=== PATIENT | male | born 1990 | race Two or more races ===

== ENCOUNTER 2019-01-31 23:57 | Emergency (ER) | payer OTHER ==
[~2019-01-31] VITALS: Ht 160 cm; Wt 77.1 kg
[~2019-01-31 23:57] MED LIST: CEPH-37 PO
[2019-02-01 02:10] VITALS: BP 134/88
== END 2019-02-01 02:20 ==
LOC: ER 02-01 00:09 → EEVIPCON 02-01 00:09 → ER 02-01 02:20
DX: Z13.39 Encounter for screening examination for other mental health and behavioral disorders (principal)

== ENCOUNTER 2019-02-19 17:06 | Inpatient (IN) | payer OTHER ==
[~2019-02-19] VITALS: Ht 162.6 cm; Wt 63.9 kg
[2019-02-19 17:58] VITALS: BP 118/70
[2019-02-19 18:27] LABS: Mean Corpuscular Volume 78.8 fL (80.0-100.0); Monocytes # (auto) 0.5 uL; White Blood Cell 5.3 10^3/uL (4.4-10.8)
[2019-02-19 18:29] LABS: Basophils # (auto) 0.1 uL; Basophils % (auto) 1.2 % (0.0-2.0); Eosinophils # (auto) 0.4 uL; Eosinophils % (auto) 8.5 % (0.0-7.0); Hematocrit 44.2 % (41.0-53.0); Hemoglobin 14.7 g/dL (13.5-17.5); Lymphocytes # (auto) 0.9 uL; Lymphocytes % (auto) 17.8 % (10.0-50.0); Mean Corpuscular Hemoglobin 26.2 pg (28.0-32.0); Mean Corpuscular Hgb Conc. 33.3 g/dL (32.0-36.0); Monocytes % (auto) 9.2 % (0.0-12.0); Neutrophils # (auto) 3.4 uL; Neutrophils % (auto) 63.3 % (37.0-80.0); Nucleated Red Blood Cells % 0.2 %; Platelet Count (auto) 199 10^3/uL (140-450); Red Blood Cells 5.62 10^6/uL (4.5-5.90); Red Cell Distribution Width 15.2 % (11.8-14.3)
[2019-02-19 18:34] LABS: INR 1.27 (0.9-1.15); Partial Thromboplastin Time 31.7 sec (23.78-33.04); Prothrombin Time 13.4 sec (9.27-12.13)
[2019-02-19] MEDS ORDERED: MORPHINE SULF INJ 2 MG/ML SYRINGE 1ML IV PRN ×2 (19:45)
[2019-02-19] MEDS ORDERED: NITROGLYCERIN 0.4 MG SL TAB SL PRN (19:45)
--- NOTE | 2019-02-19 20:00 | NUR ---
Opening Shift Note Assumed care of patient, awake and alert, oriented x 4. On room air with even and unlabored respirations. No S/S of distress or SOB. Patient denies pain at this time. Noted intact asymptomatic scar to left upper thigh. Bed low locked position with side rails up x 2 and call light within reach. Instructed on POC and to call for assist PRN, will continue to monitor for changes Q1hr and PRN.
[2019-02-19 22:00] VITALS: BP 112/62
[2019-02-20 04:52] VITALS: BP 116/63
[2019-02-20] MEDS ORDERED: HYDR-4683 PO (05:51)
[2019-02-20 06:33] LABS: Chloride 109 mmol/L (98-107); Potassium 4.9 mmol/L (3.5-5.1); Sodium 134 mmol/L (136-145)
[2019-02-20 06:36] LABS: Anion Gap 5 (5-15); Blood Urea Nitrogen 14 mg/dL (7-18); Calcium 8.6 mg/dL (8.5-10.1); Carbon Dioxide 20 mmol/L (21-32); Glucose 70 mg/dL (74-106)
[2019-02-20 06:39] LABS: BUN/Creatinine Ratio 16.7; GFR African American 138 mL/min; GFR Non-African American 114 mL/min
--- NOTE | 2019-02-20 07:04 | NUR ---
Closing Note patient resting in bed with even and unlabored respirations. No s/s of distress. Bed low locked position with side rails up x 2 and call light within reach. Endorsed care to day shift RN
[2019-02-20 09:00] VITALS: BP 104/65
[2019-02-20] MEDS: HYDROcodone-ACET 5/325MG TAB PO PRN ×2 (09:27→11:51)
[2019-02-20] MEDS: PANTOPRAZOLE 40 MG TAB PO SCH (09:28)
[2019-02-20] MEDS: ENOXAPARIN SOD 40 MG/0.4 ML SYRINGE SC SCH (09:28)
[2019-02-20] MEDS: ALLOPURINOL 300 MG TAB PO SCH (09:28)
[2019-02-20 13:00] VITALS: BP 113/65
[2019-02-20] MEDS: MULTIPLE VITAMIN 10 ML, MAGNESIUM SULF SDV 50% 8 MEQ, THIAMINE INJ 100 MG in D5W/SOD CH... IV SCH (13:08)
[2019-02-20] MEDS ORDERED: ONDANSETRON HCL 4 MG/2 ML VIAL IV SCH (13:30)
[2019-02-20] MEDS ORDERED: diphenhdrAMINE HCL 50 MG/1 ML VL IV SCH (13:30)
[2019-02-20] MEDS: ONDANSETRON HCL 16 MG in SODIUM CHL 0.9% 50 ML IV SCH (13:41)
[2019-02-20] MEDS: diphenhdrAMINE HCL 25 MG CAP PO PRN (13:41)
[2019-02-20] MEDS: SODIUM CHL 0.9% IV SCH (14:38)
[2019-02-20] MEDS: ETOPOSIDE IV SCH (14:38)
[2019-02-20 16:46] VITALS: BP 104/64
--- NOTE | 2019-02-20 19:45 | NUR ---
Opening Shift Note Assumed care of patient, awake and alert, oriented x 4. On room air with even and unlabored respirations. No S/S of distress or SOB. Patient denies pain at this time. Bed low locked position with side rails up x 2 and call light within reach. Instructed on POC and to call for assist PRN, will continue to monitor for changes Q1hr and PRN.
[2019-02-20 22:00] VITALS: BP 122/66
[2019-02-21 06:31] LABS: Basophils # (auto) 0 uL; Basophils % (auto) 0.8 % (0.0-2.0); Eosinophils # (auto) 0.5 uL; Hemoglobin 15.1 g/dL (13.5-17.5); Mean Corpuscular Volume 79.2 fL (80.0-100.0); Monocytes # (auto) 0.5 uL; Neutrophils # (auto) 3.2 uL
[2019-02-21 06:35] LABS: Eosinophils % (auto) 9.5 % (0.0-7.0); Hematocrit 44.9 % (41.0-53.0); Lymphocytes # (auto) 0.7 uL; Mean Corpuscular Hemoglobin 26.6 pg (28.0-32.0); Mean Corpuscular Hgb Conc. 33.6 g/dL (32.0-36.0); Monocytes % (auto) 10.2 % (0.0-12.0); Neutrophils % (auto) 64.5 % (37.0-80.0); Nucleated Red Blood Cells % 0.1 %; Platelet Count (auto) 206 10^3/uL (140-450); Red Blood Cells 5.67 10^6/uL (4.5-5.90); Red Cell Distribution Width 15.9 % (11.8-14.3); White Blood Cell 4.9 10^3/uL (4.4-10.8)
[2019-02-21 06:41] LABS: BUN/Creatinine Ratio 15.8; Calcium 8.6 mg/dL (8.5-10.1); Potassium 4.1 mmol/L (3.5-5.1)
--- NOTE | 2019-02-21 07:15 | NUR ---
Received phone call from Dr. Mendoza new orders for NPO now, stat PTPTT, and obtain consent for insertion of port a cath. Read back and verified. Will carry out orders. Informed patient and day shift RN Gin.
[2019-02-21 08:00] VITALS: BP 117/75
[2019-02-21 08:37] VITALS: BP 117/75
--- NOTE | 2019-02-21 08:45 | NUR ---
PATIENT STATES HE HAS BEEN NPO SINCE MIDNIGHT. PATIENT AWARE OF PENDING PROCEDURE.
--- NOTE | 2019-02-21 08:55 | NUR ---
PER PRE-OP: BRING PATIENT DOWN AT 0930 PATIENT PROCEDURE PENDING. PRE OP NURSE AWARE CONSENTS ARE UNSIGNED, CHECKLIST PLACED IN THE CHART. WILL CONTINUE CARE.
--- NOTE | 2019-02-21 09:10 | NUR ---
CALLED CHEMOTHERAPY NURSE ELEUTERIO AT DR. BOYER OFFICE SPOKE WITH GIOVANNI MCCLELLAN. STATED SHE WILL BE IN TO ADMINISTER CHEMOTHERAPY TODAY. INFORMED ELEUTERIO PATIENT IS HAVING A PORT-A-CATH PUT IN TODAY. WILL CONTINUE CARE.
[2019-02-21 09:16] LABS: INR 1.2 (0.9-1.15); Partial Thromboplastin Time 30.8 sec (23.78-33.04); Prothrombin Time 12.7 sec (9.27-12.13)
--- NOTE | 2019-02-21 09:40 | NUR ---
PATIENT TAKEN TO OR. GUARDS AT BEDSIDE. NO S/S OF DISTRESS. TELE BOX REMOVED PER ORDERS.
[2019-02-21] MEDS ORDERED: ceFAZolin 1GM/50ML 50 ML IV ONE (09:49)
[2019-02-21] MEDS ORDERED: LIDOCAINE 1% HCL (LOCAL ANESTH.) INJ 20ML MDV ONE (09:56)
[2019-02-21] MEDS ORDERED: HEPARIN SODIUM (PORCINE) 5000 UNITS/ML 1ML VIAL ONE (09:57)
[2019-02-21] MEDS ORDERED: BUPIVACAINE W/ EPINEPH 0.25% INJ 50ML MDV ONE (09:57)
[2019-02-21] MEDS ORDERED: HEPARIN 1,000 UNITS/ml 1ML VIAL ONE (09:57)
[2019-02-21] MEDS ORDERED: BUPIVACAINE 0.25% INJ 50ML VIAL ONE (09:58)
[2019-02-21] MEDS: ALLOPURINOL 300 MG TAB PO SCH (10:00)
[2019-02-21] MEDS: ENOXAPARIN SOD 40 MG/0.4 ML SYRINGE SC SCH (10:00)
[2019-02-21] MEDS: PANTOPRAZOLE 40 MG TAB PO SCH (10:00)
[2019-02-21] MEDS ORDERED: ceFAZolin 1GM VL ONE (10:13)
[2019-02-21] MEDS ORDERED: LIDOCAINE 1% (LOCAL ANESTH.) PF 5ml SDV ONE (10:31)
[2019-02-21] MEDS ORDERED: MIDAZOLAM HCL 1MG/1ML-2 ML VIAL ONE ×2 (10:35→10:45)
[2019-02-21] MEDS ORDERED: METOCLOPRAMIDE HCL 5MG/ml INJ 2ml VIAL ONE (10:39)
[2019-02-21] MEDS ORDERED: diphenhdrAMINE HCL 50 MG/1 ML VL ONE (10:39)
[2019-02-21] MEDS ORDERED: GLYCOPYRROLATE 0.2 MG/ML 1ML VIAL ONE ×2 (10:39→10:42)
[2019-02-21] MEDS ORDERED: PROPOFOL 10 MG/ML 20 ML IV ONE (11:02)
[2019-02-21] MEDS ORDERED: HYDROmorphone HCL 2 MG/ML VL IV PRN ×2 (11:15→11:30)
[2019-02-21] MEDS ORDERED: ONDANSETRON HCL 4 MG/2 ML VIAL IV ONE (11:30)
[2019-02-21] MEDS ORDERED: NALOXONE HCL 0.4 MG/ML VIAL IV PRN (11:30)
[2019-02-21] MEDS: MULTIPLE VITAMIN 10 ML, MAGNESIUM SULF SDV 50% 8 MEQ, THIAMINE INJ 100 MG in D5W/SOD CH... IV SCH (12:00)
--- NOTE | 2019-02-21 12:10 | NUR ---
PATIENT BACK TO UNIT. NO S/S OF DISTRESS. WILL CONTINUE CARE.
--- NOTE | 2019-02-21 12:15 | NUR ---
ASSESSMENT PATIENT RETURNED TO FLOOR WITH ACCESS TO PORT-A-CATH. WILL CONTINUE TO MONITOR.
[2019-02-21] MEDS: ONDANSETRON HCL 16 MG in SODIUM CHL 0.9% 50 ML IV SCH (13:19)
[2019-02-21] MEDS: diphenhdrAMINE HCL 25 MG CAP PO PRN (13:20)
--- NOTE | 2019-02-21 13:24 | NUR ---
ICE UPDATED ON PATIENT STATUS PASSWORD VERIFIED. ALL QUESTIONS AND CONCERNS ADDRESSED.
[2019-02-21] MEDS ORDERED: IFOSFAMIDE IV ONE (14:00)
[2019-02-21] MEDS ORDERED: MESNA IV ONE (14:00)
[2019-02-21] MEDS ORDERED: D5W 5% IV ONE ×2 (14:00)
[2019-02-21] MEDS ORDERED: CARBOPLATIN IV ONE (14:00)
[2019-02-21] MEDS: SODIUM CHL 0.9% IV SCH (15:47)
[2019-02-21] MEDS: ETOPOSIDE IV SCH (15:47)
--- NOTE | 2019-02-21 15:47 | NUR ---
CHEMOTHERAPY STARTED BY CHEMOTHERAPY NURSE. WILL CONTINUE CARE.
[2019-02-21] MEDS: ACETAMINOPHEN 500 MG TAB PO PRN (16:54)
[2019-02-21 17:00] VITALS: BP 111/68
--- NOTE | 2019-02-21 18:20 | NUR ---
Second bag of Chemotherapy started by chemo nurse Kaity. Will continue care.
--- NOTE | 2019-02-21 18:58 | NUR ---
Next chemotherapy drugs started by chemo nurseKaity. Will continue care.
--- NOTE | 2019-02-21 19:19 | NUR ---
CLOSING NOTE ENDORSED CARE TO LABORER PIE BAKERY RN. PATIENT IN BED LOW LOCK POSITION, CALL LIGHT IN REACH. NO S/S OF DISTRESS. CHEMOTHERAPY RUNNING, RN AWARE.
--- NOTE | 2019-02-21 19:50 | NUR ---
Opening Shift Note Assumed care of patient, awake and alert, oriented x 4. On room air with even and unlabored respirations. No S/S of distress or SOB. Patient denies pain at this time. IV to right AC intact and patent. Port-a-cath to left upper chest intact with chemotherapy medications infusing per orders. Bilateral radial and pedal pulses 3+, even and regular. Patient independently turns in bed and ambulates. Patient reports nausea, will follow up with anti-nausea per orders. Bed low locked position with side rails up x 2 and call light within reach. Guards at bedside. Instructed on POC and to call for assist PRN, will continue to monitor for changes Q1hr and PRN.
[2019-02-21] MEDS: ONDANSETRON HCL 4 MG/2 ML VIAL IV PRN (20:05)
[2019-02-21 22:00] VITALS: BP 106/66
[2019-02-22 05:00] VITALS: BP 120/73
--- NOTE | 2019-02-22 07:03 | NUR ---
Closing Note patient sleeping in bed with even and unlabored respirations. No s/s of distress. Port-a-cath intact infusing chemotherapy medications. Bed low locked position with side rails up x 2 and call light within reach. Guards at bedside. Endorsed care to day shift RN.
--- NOTE | 2019-02-22 07:30 | NUR ---
OPENING NOTE PATIENT IN BED LOW LOCK POSITION, CALL LIGHT IN REACH. IV PATENT, CHEMOTHERAPY INFUSING. NO S/S OF DISTRESS. WILL CONTINUE CARE.
[2019-02-22] MEDS: HYDROcodone-ACET 5/325MG TAB PO PRN ×2 (07:44→19:40)
[2019-02-22] MEDS: ONDANSETRON HCL 4 MG/2 ML VIAL IV PRN ×3 (07:45→17:55)
[2019-02-22 08:00] VITALS: BP 117/75
[2019-02-22] MEDS: ALLOPURINOL 300 MG TAB PO SCH (09:06)
[2019-02-22] MEDS: PANTOPRAZOLE 40 MG TAB PO SCH (09:06)
[2019-02-22] MEDS: ENOXAPARIN SOD 40 MG/0.4 ML SYRINGE SC SCH (09:06)
[2019-02-22] MEDS ORDERED: LACTULOSE 20Gm/30ML SOLN PO PRN (10:45)
[2019-02-22] MEDS ORDERED: HYDROmorphone HCL 2 MG/ML VL IV PRN (10:45)
[2019-02-22 10:52] LABS: Hepatitis B Surface Antibody Negative
[2019-02-22 11:14] LABS: Hepatitis A Total Antibody Positive
[2019-02-22 11:44] LABS: Hepatitis B Core Total AB Negative
[2019-02-22 11:45] LABS: Hepatitis B Surface Antigen Negative (Negative); Hepatitis C Antibody Negative (Negative)
[2019-02-22] MEDS: MULTIPLE VITAMIN 10 ML, MAGNESIUM SULF SDV 50% 8 MEQ, THIAMINE INJ 100 MG in D5W/SOD CH... IV SCH (12:07)
--- NOTE | 2019-02-22 13:29 | NUR ---
[facility] ICE UPDATED ON PATIENT STATUS PASSWORD VERIFIED. ALL QUESTIONS AND CONCERNS ADDRESSED.
[2019-02-22] MEDS: ONDANSETRON HCL 16 MG in SODIUM CHL 0.9% 50 ML IV SCH (13:30)
[2019-02-22] MEDS: SODIUM CHL 0.9% IV SCH (14:00)
[2019-02-22] MEDS: ETOPOSIDE IV SCH (14:00)
--- NOTE | 2019-02-22 15:01 | NUR ---
SPOKE WITH CHEMOTHERAPY NURSE ELEUTERIO STATED NO CHEMOTHERAPY WILL BE ADMINISTERED TODAY AFTER THE 24 HOUR INFUSION IS FINISHED TONIGHT. PER ELEUTERIO, GAVE ORDERS TO FINISH CHEMOTHERAPY ON MONDAY. CHARGE NURSE AWARE. STATED PORT-A-CATH NEEDS TO BE FLUSHED WITH 5,000 UNITS OF HEPARIN AFTER INFUSION OF CHEMOTHERAPY IS FINISHED. WILL CONTINUE CARE.
--- NOTE | 2019-02-22 19:30 | NUR ---
CLOSING NOTE ENDORSED CARE TO ZIPPER TRIMMER RN. CHEMOTHERAPY RUNNING, RN AWARE. BED IN LOW LOCK POSITION, CALL LIGHT IN REACH. NO S/S OF DISTRESS.
--- NOTE | 2019-02-22 20:45 | NUR ---
CHRISTINA HOSPITALIST, PATIENT COMPLAINT OF NAUSEA. ZOFRAN NOT DUE YET. KEPT HEAD OF BED ELEVATED MORE THAN 30 DEGREES. AWAITING CALLBACK. CONTINUE PATIENT CARE.
[2019-02-22] MEDS ORDERED: PROMETHAZINE HCL 25 MG/ML 1ML IV ONE (21:00)
[2019-02-22] MEDS: DOCUSATE SOD 100 MG CAP PO SCH (21:29)
--- NOTE | 2019-02-22 21:53 | NUR ---
HOSPITALIST SCOTT GASCA/PIN TICKET MACHINE OPERATOR CALLED BACK MADE AWARE OF PATIENT'S CURRENT CONDITION, ORDERED TO GIVE ONE TIME DOSE OF PHENERGAN 12.5 MG IV. CONTINUE PATIENT CARE.
[2019-02-22 22:00] VITALS: BP 112/62
--- NOTE | 2019-02-23 00:30 | NUR ---
DENIES NAUSEA AT THIS TIME.
[2019-02-23 05:18] VITALS: BP 117/71
[2019-02-23 08:00] VITALS: BP 102/67
[2019-02-23 08:54] VITALS: BP 114/58
--- NOTE | 2019-02-23 09:00 | NUR ---
Pt alert and oriented. Pt denies nausea at this time. [place] given for c/o pain in left groin area, with good effectiveness. No other c/o pain or discomfort. Security guards at bedside.
[2019-02-23] MEDS: HYDROcodone-ACET 5/325MG TAB PO PRN ×2 (09:31→16:29)
[2019-02-23] MEDS: ENOXAPARIN SOD 40 MG/0.4 ML SYRINGE SC SCH (10:05)
[2019-02-23] MEDS: ALLOPURINOL 300 MG TAB PO SCH (10:05)
[2019-02-23] MEDS: DOCUSATE SOD 100 MG CAP PO SCH ×2 (10:05→22:24)
[2019-02-23] MEDS: PANTOPRAZOLE 40 MG TAB PO SCH (10:05)
[2019-02-23 13:00] VITALS: BP 119/63
--- NOTE | 2019-02-23 14:00 | NUR ---
Pt c/o having difficulty voiding. Abd soft, no bladder distention apparent. No other c/o pain or discomfort.
--- NOTE | 2019-02-23 14:42 | NUR ---
Nutrition Assessment Notes Please see attached link for complete assessment Est. Needs ABShiva [id number] kcal (23-25 kcal/kgBW), 73-80 gms pro (1.0-1.1 gms/kgBW). Will continue to monitor pertinent labs and reassess nutrient need prn Addendum: 02/23/19 at [address] Amended: Links added.
--- NOTE | 2019-02-23 15:00 | NUR ---
pt voided 200cc clear yellow urine. No hematuria noted. Pt instructed, through interpretation by senior information security consultant, to use urinal so that output can be closely monitored.
[2019-02-23] MEDS: MULTIPLE VITAMIN 10 ML, MAGNESIUM SULF SDV 50% 8 MEQ, THIAMINE INJ 100 MG in D5W/SOD CH... IV SCH (16:30)
--- NOTE | 2019-02-23 16:30 | NUR ---
[place] given for c/o left groin pain. No other c/o pain or discomfort.
[2019-02-23 17:00] VITALS: BP 112/79
--- NOTE | 2019-02-23 18:00 | NUR ---
Pt voided 400cc clear yellow urine. No hematuria apparent. Pt denies pain or discomfort with voiding.
--- NOTE | 2019-02-23 19:20 | NUR ---
RECEIVED PATIENT LYING IN BED, AWAKE, ALERT, ORIENTED X4. NO S/S OF RESPIRATORY DISTRESS, DENIES SOB AND CHEST PAIN. SKIN IS INTACT. ORIENTED ON PLAN OF CARE. BED IS LOCKED AND IN LOWEST LEVEL, SIDE RAILS UP X2, CALL LIGHT WITHIN REACH. WILL CONTINUE TO MONITOR
[2019-02-23 22:00] VITALS: BP 104/52
--- NOTE | 2019-02-23 22:00 | NUR ---
PATIENT HAD A TOTAL OF 1,600 ML OF URINE OUTPUT, CLEAR AND LIGHT YELLOW IN COLOR. DENIES DISCOMFORT WITH VOIDING
[2019-02-23] MEDS: D5W/SOD CHL 0.45% 1,000 ML IV SCH (22:24)
[2019-02-24] MEDS: HYDROcodone-ACET 5/325MG TAB PO PRN ×2 (00:38→10:16)
[2019-02-24] MEDS: D5W/SOD CHL 0.45% 1,000 ML IV SCH ×3 (03:15→23:15)
[2019-02-24 04:55] VITALS: BP 99/50
--- NOTE | 2019-02-24 05:05 | NUR ---
ANOTHER 1,750 ML ADDED TO URINE OUTPUT, CLEAR AND LIGHT YELLOW IN COLOR. DENIES DISCOMFORT WITH VOIDING
[2019-02-24 05:46] LABS: Basophils # (auto) 0 uL; Eosinophils # (auto) 0.3 uL; Hematocrit 45.9 % (41.0-53.0); Lymphocytes # (auto) 0.4 uL; Mean Corpuscular Hemoglobin 26.8 pg (28.0-32.0); Monocytes # (auto) 0.2 uL; Neutrophils # (auto) 3.4 uL; Nucleated Red Blood Cells % 0.2 %; Platelet Count (auto) 163 10^3/uL (140-450); White Blood Cell 4.3 10^3/uL (4.4-10.8)
[2019-02-24 05:48] LABS: Basophils % (auto) 0.5 % (0.0-2.0); Eosinophils % (auto) 6.9 % (0.0-7.0); Hemoglobin 15.5 g/dL (13.5-17.5); Lymphocytes % (auto) 8.3 % (10.0-50.0); Mean Corpuscular Hgb Conc. 33.7 g/dL (32.0-36.0); Mean Corpuscular Volume 79.4 fL (80.0-100.0); Monocytes % (auto) 4.4 % (0.0-12.0); Neutrophils % (auto) 79.9 % (37.0-80.0); Red Blood Cells 5.78 10^6/uL (4.5-5.90); Red Cell Distribution Width 15.7 % (11.8-14.3)
[2019-02-24 05:58] LABS: Chloride 102 mmol/L (98-107); Sodium 134 mmol/L (136-145)
[2019-02-24 06:03] LABS: Anion Gap 7 (5-15); Blood Urea Nitrogen 16 mg/dL (7-18); Calcium 8.7 mg/dL (8.5-10.1); Carbon Dioxide 25 mmol/L (21-32); Glucose 92 mg/dL (74-106)
[2019-02-24 06:06] LABS: GFR African American 113 mL/min; GFR Non-African American 93 mL/min
--- NOTE | 2019-02-24 07:22 | NUR ---
CARE ENDORSED TO AM SHIFT RN
[2019-02-24 08:00] VITALS: BP 102/67
[2019-02-24 09:16] VITALS: BP 111/71
[2019-02-24] MEDS: ALLOPURINOL 300 MG TAB PO SCH (10:12)
[2019-02-24] MEDS: PANTOPRAZOLE 40 MG TAB PO SCH (10:12)
[2019-02-24] MEDS: DOCUSATE SOD 100 MG CAP PO SCH ×2 (10:13→21:33)
[2019-02-24] MEDS: ENOXAPARIN SOD 40 MG/0.4 ML SYRINGE SC SCH (10:13)
[2019-02-24] MEDS: MULTIPLE VITAMIN 10 ML, MAGNESIUM SULF SDV 50% 8 MEQ, THIAMINE INJ 100 MG in D5W/SOD CH... IV SCH (12:25)
[2019-02-24 13:00] VITALS: BP 106/69
[2019-02-24 17:28] VITALS: BP 106/63
--- NOTE | 2019-02-24 18:00 | NUR ---
Pt alert, and oriented, showing no change from initial assessment. Pt voiding large amts clear yellow urine with no apparent hematuria. Pt denies pain or discomfort with voiding. V.S.S., resp even, unlabored. [place], given times one, during this shift, for c/o left groin pain, with good effectiveness. No other c/o pain or discomfort. Security guards remain at bedside.
[2019-02-24 21:30] VITALS: BP 117/69
[2019-02-25 04:47] VITALS: BP 117/67
[2019-02-25 06:50] LABS: Basophils # (auto) 0 uL; Eosinophils # (auto) 0.3 uL
[2019-02-25 06:53] LABS: Basophils % (auto) 1.4 % (0.0-2.0); Eosinophils % (auto) 9.4 % (0.0-7.0); Hematocrit 43.7 % (41.0-53.0); Hemoglobin 15.1 g/dL (13.5-17.5); Lymphocytes # (auto) 0.5 uL; Lymphocytes % (auto) 14.9 % (10.0-50.0); Mean Corpuscular Hemoglobin 26.7 pg (28.0-32.0); Mean Corpuscular Hgb Conc. 34.5 g/dL (32.0-36.0); Mean Corpuscular Volume 77.2 fL (80.0-100.0); Monocytes # (auto) 0.2 uL; Neutrophils # (auto) 2.1 uL; Neutrophils % (auto) 69.3 % (37.0-80.0); Nucleated Red Blood Cells % 0.8 %; Platelet Count (auto) 169 10^3/uL (140-450); Red Blood Cells 5.66 10^6/uL (4.5-5.90); Red Cell Distribution Width 15.7 % (11.8-14.3); White Blood Cell 3.1 10^3/uL (4.4-10.8)
[2019-02-25 06:59] LABS: Potassium 3.2 mmol/L (3.5-5.1)
[2019-02-25 07:02] LABS: Albumin 3.8 g/dL (3.4-5.0); Calcium 8.6 mg/dL (8.5-10.1)
[2019-02-25 07:08] LABS: Bilirubin, Total 0.4 mg/dL (0.2-1.0); Total Protein 7.9 g/dL (6.4-8.2)
--- NOTE | 2019-02-25 07:26 | NUR ---
CARE ENDORSED TO AM SHIFT RN
--- NOTE | 2019-02-25 08:40 | NUR ---
SPOKE WITH CHEMOTHERAPY NURSEMARY NEW ORDERS GIVEN PER DR. KRISHNAMURTHY. SEE ORDERS.
--- NOTE | 2019-02-25 08:49 | NUR ---
SPOKE WITH PHARMACY ABOUT CHEMOTHERAPY. WILL CONTINUE CARE.
[2019-02-25] MEDS ORDERED: SODIUM CHL 0.9% IV SCH (09:00)
[2019-02-25] MEDS ORDERED: diphenhdrAMINE HCL 25 MG CAP PO PRN (09:00)
[2019-02-25] MEDS ORDERED: ETOPOSIDE IV SCH (09:00)
[2019-02-25] MEDS ORDERED: ONDANSETRON HCL 16 MG in SODIUM CHL 0.9% 50 ML IV SCH (09:00)
[2019-02-25] MEDS: PANTOPRAZOLE 40 MG TAB PO SCH (09:06)
[2019-02-25] MEDS: ENOXAPARIN SOD 40 MG/0.4 ML SYRINGE SC SCH (09:06)
[2019-02-25] MEDS: ALLOPURINOL 300 MG TAB PO SCH (09:06)
[2019-02-25] MEDS: DOCUSATE SOD 100 MG CAP PO SCH ×2 (09:06→21:31)
[2019-02-25 09:11] VITALS: BP 121/70
[2019-02-25] MEDS: D5W/SOD CHL 0.45% 1,000 ML IV SCH ×3 (10:52→21:30)
--- NOTE | 2019-02-25 11:15 | NUR ---
CHEMOTHERAPY STARTED BY CHEMO NURSE ELEUTERIO. WILL CONTINUE CARE.
[2019-02-25 12:48] VITALS: BP 103/60
--- NOTE | 2019-02-25 13:40 | NUR ---
CALLED PHARMACY TO OBTAIN SCHEDULE MEDICATION. STATED IT WOULD BE SENT AND MIXED. WILL CONTINUE TO MONITOR.
[2019-02-25] MEDS: MULTIPLE VITAMIN 10 ML, MAGNESIUM SULF SDV 50% 8 MEQ, THIAMINE INJ 100 MG in D5W/SOD CH... IV SCH (14:24)
--- NOTE | 2019-02-25 16:20 | NUR ---
REPORT GIVEN TO [facility] PASSWORD VERIFIED, SPOKE WITH JOBY. ALL QUESTIONS AND CONCERNS ADDRESSED.
[2019-02-25 16:49] VITALS: BP 109/83
[2019-02-25] MEDS: ACETAMINOPHEN 500 MG TAB PO PRN (17:57)
--- NOTE | 2019-02-25 18:38 | NUR ---
CALLED MD BOYER EXCHANGE TO VERIFY IF PATIENT IS RECEIVING CHEMOTHERAPY TOMORROW PER CHARGE NURSE REQUEST TO CALL MD TO VERIFY ORDERED CHEMOTHERAPY FOR TOMORROW. SPOKE WITH GABRIELA, PAGE SENT TO . AWAITING CALL BACK.
--- NOTE | 2019-02-25 19:08 | NUR ---
CLOSING NOTE CARE ENDORSED TO NEWSPAPER DELIVERY COUNSELOR RN. RN AWARE OF PAGE OUT TO MD BOYER TO CONFIRM CHEMOTHERAPY ORDER FOR TOMORROW. BED IN LOW LOCK POSITION, CALL LIGHT IN REACH. NO S/S OF DISTRESS.
[2019-02-25 21:30] VITALS: BP 108/58
--- NOTE | 2019-02-25 22:15 | NUR ---
RECEIVED A CALL FOR DR. ROSALIND BOYER SAID THERE WILL BE NO CHEMO FOR TOMORROW, THE LAST CHEMO IS DONE TODAY Addendum: 02/25/19 at 2255 by RASHARD PAGE RN RECEIVED A CALL FROM DR. ROSALIND BOYER SAID THERE WILL BE NO CHEMO FOR TOMORROW, THE LAST CHEMO WAS DONE TODAY
[2019-02-26] MEDS: D5W/SOD CHL 0.45% 1,000 ML IV SCH (01:05)
[2019-02-26 04:30] VITALS: BP 96/59
[2019-02-26 06:47] LABS: Basophils # (auto) 0 uL; Eosinophils # (auto) 0.3 uL; Monocytes # (auto) 0.1 uL; Neutrophils # (auto) 1.8 uL; Red Blood Cells 5.53 10^6/uL (4.5-5.90)
[2019-02-26 06:49] LABS: Basophils % (auto) 1.3 % (0.0-2.0); Eosinophils % (auto) 10.8 % (0.0-7.0); Hematocrit 42.7 % (41.0-53.0); Hemoglobin 14.5 g/dL (13.5-17.5); Lymphocytes # (auto) 0.4 uL; Lymphocytes % (auto) 15.9 % (10.0-50.0); Mean Corpuscular Hemoglobin 26.2 pg (28.0-32.0); Mean Corpuscular Volume 77.2 fL (80.0-100.0); Monocytes % (auto) 4.6 % (0.0-12.0); Neutrophils % (auto) 67.4 % (37.0-80.0); Nucleated Red Blood Cells % 1.2 %; Platelet Count (auto) 168 10^3/uL (140-450); Red Cell Distribution Width 15.4 % (11.8-14.3); White Blood Cell 2.7 10^3/uL (4.4-10.8)
--- NOTE | 2019-02-26 07:19 | NUR ---
CARE ENDORSED TO AM SHIFT RN
[2019-02-26 07:26] LABS: Potassium 3.2 mmol/L (3.5-5.1)
[2019-02-26 07:30] LABS: Albumin 3.6 g/dL (3.4-5.0); Calcium 8.1 mg/dL (8.5-10.1)
[2019-02-26 07:35] LABS: BUN/Creatinine Ratio 14.3; Bilirubin, Total 0.4 mg/dL (0.2-1.0); Total Protein 7.3 g/dL (6.4-8.2)
[2019-02-26 08:33] VITALS: BP 126/77
[2019-02-26] MEDS ORDERED: HYDROcodone-ACET 5/325MG TAB PO PRN (09:30)
[2019-02-26] MEDS ORDERED: HYDROmorphone HCL 2 MG/ML VL IV PRN (09:30)
[2019-02-26] MEDS: ALLOPURINOL 300 MG TAB PO SCH (09:36)
[2019-02-26] MEDS: DOCUSATE SOD 100 MG CAP PO SCH ×2 (09:36→21:21)
[2019-02-26] MEDS: PANTOPRAZOLE 40 MG TAB PO SCH (09:36)
[2019-02-26] MEDS: ENOXAPARIN SOD 40 MG/0.4 ML SYRINGE SC SCH (09:37)
[2019-02-26 12:17] VITALS: BP 106/63
--- NOTE | 2019-02-26 12:20 | NUR ---
REPORT GIVEN TO [facility] PASSWORD VERIFIED. ALL QUESTIONS AND CONCERNS ADDRESSED.
[2019-02-26] MEDS: MULTIPLE VITAMIN 10 ML, MAGNESIUM SULF SDV 50% 8 MEQ, THIAMINE INJ 100 MG in D5W/SOD CH... IV SCH (13:18)
[2019-02-26] MEDS: FILGRASTIM(TBO) 480 MCG/0.8 ML SYRG SC SCH (14:01)
[2019-02-26 16:57] VITALS: BP 118/75
--- NOTE | 2019-02-26 19:25 | NUR ---
Opening Shift Note Assumed care of patient, awake and alert. No S/S of distress/SOB or pain. Instructed on POC and to call for assist PRN, will continue to monitor for changes Q1hr and PRN. Side rails up x2. Bed locked in lowest position. Call light within reach. Hand cuff on right wrist and both ankles. 2 guards at bedside.
[2019-02-26] MEDS: ACETAMINOPHEN 500 MG TAB PO PRN (21:22)
[2019-02-26 22:00] VITALS: BP 111/67
--- NOTE | 2019-02-27 01:26 | NUR ---
Rounds Patient in bed asleep with no signs of distress/sob/pain. Will continue to monitor.
[2019-02-27 05:01] VITALS: BP 113/65
--- NOTE | 2019-02-27 07:25 | NUR ---
Endorsed care to day shift RN.
[2019-02-27 07:58] LABS: Albumin 3.9 g/dL (3.4-5.0); Calcium 8.5 mg/dL (8.5-10.1); Potassium 3.4 mmol/L (3.5-5.1)
[2019-02-27 08:00] VITALS: BP 103/60
[2019-02-27 08:01] LABS: BUN/Creatinine Ratio 16.5; Bilirubin, Total 0.6 mg/dL (0.2-1.0); Total Protein 7.5 g/dL (6.4-8.2)
[2019-02-27 09:00] VITALS: BP 116/76
[2019-02-27] MEDS: FILGRASTIM(TBO) 480 MCG/0.8 ML SYRG SC SCH (10:35)
[2019-02-27] MEDS: DOCUSATE SOD 100 MG CAP PO SCH ×2 (10:35→22:16)
[2019-02-27] MEDS: ALLOPURINOL 300 MG TAB PO SCH (10:35)
[2019-02-27] MEDS: PANTOPRAZOLE 40 MG TAB PO SCH (10:36)
[2019-02-27] MEDS: ENOXAPARIN SOD 40 MG/0.4 ML SYRINGE SC SCH (10:36)
[2019-02-27] MEDS: MULTIPLE VITAMIN 10 ML, MAGNESIUM SULF SDV 50% 8 MEQ, THIAMINE INJ 100 MG in D5W/SOD CH... IV SCH (12:19)
--- NOTE | 2019-02-27 12:44 | NUR ---
Nutrition Follow-up Notes Wt.: 63.9 kg as of yesterday. Pt's talking to MD at bedside when rounded this morning. Pt had chemotherapy (02/25/19), no signs of distress noted earlier, currently on Regular diet with adequate PO intake aeb 90% ave. consumed meals (x7) in last 3 days. Est. Needs ABW [id number] kcal (23-25 kcal/kgBW), 73-80 gms pro (1.0-1.1 gms/kgBW). Will continue to monitor pertinent labs and reassess nutrient need prn Labs: K 3.4 L, AST 54 H, ALT 158 H (trending down) Skin: Marquis scale 21, low risk, skin intact per acetylene plant operator. GI: Pt had 1 BM 02/25/19 per acetylene plant operator. PES: Increased nutrient needs r/t current/chronic medical condition aeb Hodgkin's Lymphoma, on chemotherapy. Altered nutrition related lab values r/t current/chronic medical condition aeb hypokalemia, elev. LFTs Will continue to monitor PO intake, skin status, pertinent labs and weight trend. F/u in 3 to 5 days. Rec.: 1.) Continue close supervision during meals. 2.) If pt's PO intake inadequate (<75%), consider Ensure Enlive 1 carton BID.3 .) Refer pt to RD for further nutrition education and weight monitoring upon discharge. 4.) Continue current plan of care.
[2019-02-27 13:00] VITALS: BP 114/74
[2019-02-27 17:00] VITALS: BP 111/70
--- NOTE | 2019-02-27 19:10 | NUR ---
Opening Shift Note Assumed care of patient, awake and alert. No S/S of distress/SOB or pain. Instructed on POC and to call for assist PRN, will continue to monitor for changes Q1hr and PRN. Side rails up x2. Bed locked in lowest position. Call light within reach. 2 guards at bedside.
[2019-02-27 22:00] VITALS: BP 113/70
--- NOTE | 2019-02-28 02:19 | NUR ---
Rounds Patient in bed asleep with no signs of distress/sob/pain. Will continue to monitor.
[2019-02-28 05:00] VITALS: BP 122/80
--- NOTE | 2019-02-28 07:20 | NUR ---
Endorsed care to day shift RN.
[2019-02-28 07:34] LABS: Potassium 3.5 mmol/L (3.5-5.1)
[2019-02-28 07:38] LABS: Albumin 3.6 g/dL (3.4-5.0); Calcium 8.2 mg/dL (8.5-10.1)
[2019-02-28 07:44] LABS: BUN/Creatinine Ratio 16.3; Bilirubin, Total 0.4 mg/dL (0.2-1.0); Total Protein 7.4 g/dL (6.4-8.2)
[2019-02-28 08:32] VITALS: BP 107/69
[2019-02-28] MEDS: PANTOPRAZOLE 40 MG TAB PO SCH (09:41)
[2019-02-28] MEDS: FILGRASTIM(TBO) 480 MCG/0.8 ML SYRG SC SCH (09:41)
[2019-02-28] MEDS: DOCUSATE SOD 100 MG CAP PO SCH (09:41)
[2019-02-28] MEDS: ENOXAPARIN SOD 40 MG/0.4 ML SYRINGE SC SCH (09:41)
[2019-02-28] MEDS: ALLOPURINOL 300 MG TAB PO SCH (09:42)
[2019-02-28 10:27] LABS: Hematocrit 43.3 % (41.0-53.0); Hemoglobin 14.4 g/dL (13.5-17.5); Mean Corpuscular Hemoglobin 25.9 pg (28.0-32.0); Mean Corpuscular Hgb Conc. 33.3 g/dL (32.0-36.0); Mean Corpuscular Volume 77.9 fL (80.0-100.0); Platelet Count (auto) 92 10^3/uL (140-450); Red Blood Cells 5.56 10^6/uL (4.5-5.90); Red Cell Distribution Width 14.9 % (11.8-14.3)
[2019-02-28 10:44] LABS: Basophils % (manual) 0 (0.0-2.0); Blast Cells 0; Metamyelocytes % 0; Myelocytes % 0; Promyelocytes % 0; Reactive Lymphocytes 0
[2019-02-28] MEDS ORDERED: PANT40T PO (11:29)
[2019-02-28] MEDS ORDERED: ALL300T PO (11:29)
[2019-02-28 11:58] LABS: Band Neutrophils % (manual) 6; Eosinophils % (manual) 2 (0-7); Lymphocytes % (manual) 11 (10.0-50.0); Monocytes % (manual) 3 (0-12)
[2019-02-28] MEDS: MULTIPLE VITAMIN 10 ML, MAGNESIUM SULF SDV 50% 8 MEQ, THIAMINE INJ 100 MG in D5W/SOD CH... IV SCH (12:00)
[2019-02-28 12:20] VITALS: BP 103/60
[2019-02-28 12:52] VITALS: BP 117/76
--- NOTE | 2019-02-28 13:19 | NUR ---
Discharge instructions given as ordered. Encourage to follow up with PMD (Follow up with MD in group home) as instructed. All questions and concerns addressed. Patient verbalized understanding. Medication reconciliation form completed and copy given to patient. Home medications held in Pharmacy returned to patient, and needed vaccines given. Patient taken to vehicle via wheelchair with all personal belongings, accompanied by staff and family member. No distress noted at time of departure.
== END 2019-02-28 13:20 | DRG 829 ==
LOC: EEVIPCON 17:06 → EAST 17:06 → TELE-EAST 02-20 07:25 → EAST 02-21 09:51
PROVIDERS: ADMIT Nurse Practitioner Acute Care; ATTEND Internal Medicine
PROC: 02HV33Z Insertion of Infusion Device into Superior Vena Cava, Percutaneous Approach (ICD-10-PCS; 2019-02-21)
PROC: 0JH60WZ Insertion of Totally Implantable Vascular Access Device into Chest Subcutaneous Tissue and Fascia, Open Approach (ICD-10-PCS; principal; 2019-02-21 10:31)
DX: Z51.11 Encounter for antineoplastic chemotherapy (principal); E87.1 Hypo-osmolality and hyponatremia; C81.90 Hodgkin lymphoma, unspecified, unspecified site; E86.0 Dehydration; D72.819 Decreased white blood cell count, unspecified; K21.9 Gastro-esophageal reflux disease without esophagitis; G47.33 Obstructive sleep apnea (adult) (pediatric); Z80.0 Family history of malignant neoplasm of digestive organs; Z86.718 Personal history of other venous thrombosis and embolism; Z92.21 Personal history of antineoplastic chemotherapy
CPT/HCPCS: 36415; 71045; 80048; 80053; 82962; 83615; 84550; 85007; 85025; 85027; 85610; 85730; 86703; 86704; 86706; 86708; 86803; 86850; 86900; 86901; 87081; 87340; 93971; C1788; G0378; J0690; J1447; J2001; J2250; J2405; J2704; J3490; J7060; J9045; J9208; J9209

== ENCOUNTER → 2019-06-18 | Outpatient (CLI) | payer OTHER ==
[~2019-06-18] MED LIST changes: +ALL300T PO; -CEPH-37 PO; +HYDR-4833 PO; +PANT40T PO
[2019-06-18 16:42] LABS: Hemoglobin 11.1 g/dL (13.5-17.5); Mean Corpuscular Hemoglobin 28.5 pg (28.0-32.0)
[2019-06-18 16:45] LABS: Hematocrit 32.9 % (41.0-53.0); Mean Corpuscular Hgb Conc. 33.6 g/dL (32.0-36.0); Mean Corpuscular Volume 84.6 fL (80.0-100.0); Red Blood Cells 3.89 10^6/uL (4.5-5.90); Red Cell Distribution Width 17.8 % (11.8-14.3)
[2019-06-18 20:07] LABS: Basophils % (manual) 0 (0.0-2.0); Blast Cells 0; Eosinophils % (manual) 0 (0-7); Metamyelocytes % 0; Myelocytes % 0; Promyelocytes % 0; Reactive Lymphocytes 0
[2019-06-18 20:08] LABS: Band Neutrophils % (manual) 1; Lymphocytes % (manual) 34 (10.0-50.0); Monocytes % (manual) 15 (0-12)
[2019-06-18 20:13] LABS: White Blood Cell 1.9 10^3/uL (4.4-10.8)
[2019-06-18 20:21] LABS: Platelet Count (auto) 25 10^3/uL (140-450)
== END | disposition home or self-care (01) ==
LOC: LAB 16:22
PROVIDERS: ATTEND Internal Medicine Hematology & Oncology
DX: C81.90 Hodgkin lymphoma, unspecified, unspecified site (principal)
CPT/HCPCS: 36415; 85007; 85027